=== PATIENT | female | born 1985 | race Caucasian/White ===

== ENCOUNTER 2016-06-03 18:42 | Emergency (ER) | payer SELFPAY ==
[2016-06-03 19:00] VITALS: BP 154/90; PULSE 95; TEMP 98.9; BMI 35.7
[2016-06-03 19:19] LABS: AUTOMATED BASOPHIL 0.8 % (0-2); AUTOMATED EOSINOPHIL 0.5 % (0-5); AUTOMATED LYMPH 32.1 % (17-44); AUTOMATED MONOCYTE 6.8 % (3-10); AUTOMATED NEUTROPHIL 59.8 % (45-76); MPV 8.2 fL (7.4-10.4)
[2016-06-03 19:23] LABS: RBC/URINE 0-2 (0-5); WBC/URINE 0-2 (0-5)
[2016-06-03 19:28] LABS: LEUKOCYTES/URINE NEG (NEGATIVE); NITRITE/URINE NEG (NEGATIVE); URINE OCCULT BLOOD 1+ (NEG/TRACE)
[2016-06-03 19:36] LABS: BLOOD UREA NITROGEN 9 MG/DL (7-17); CALCIUM 9.4 MG/DL (8.4-10.2); CALCULATED OSMOLALITY 274 MOs/Kg (270-290); CHLORIDE 105 mEq/L (98-107); ETOH-MGDL < 10 mg/dL; GLUCOSE 96 MG/DL (70-99); SODIUM LEVEL 143 mEq/L (137-146); TOTAL PROTEIN 8.2 G/DL (6.3-8.2)
== END 2016-06-03 20:45 | disposition left against medical advice (07) ==
LOC: ED 18:42
DX: T42.6X2A Poisoning by other antiepileptic and sedative-hypnotic drugs, intentional self-harm, initial encounter (principal)
CPT/HCPCS: 36415; 80053; 80307; 80329; 81001; 85025; 86592; 93005; 99281

== ENCOUNTER 2016-06-03 21:42 | Observation (INO) | payer SELFPAY ==
[2016-06-03 21:55] VITALS: BMI 35.6
--- NOTE | 2016-06-03 22:16 | EDPRACDOC ---
- General Information Chief Complaint: Psychiatric Illness Stated Complaint: IVC Time Seen by Provider: 06/03/16 21:48 Mode of Arrival: Law Enforcement Home Medications: Home Medications CYANOCOBALAMIN (Vitamin B-12) [Vitamin B-12] 1,000 mcg IM DAILY 06/03/16 Gabapentin 300 mg PO .SEE COMMENTS 06/03/16 Unknown Other Meds 0 mg PO .SEE COMMETS 06/03/16 Allergies/Adverse Reactions: Allergies Allergy/AdvReac Type Severity Reaction Status Date / Time lisinopril Allergy Hives* Verified 06/03/16 18:54 - History of Present Illness Onset: [employer] HPI: PT PRESENTS TODAY WITH ANGIE FOR SI. PT CHECKED IN A FEW HOURS AGO AND TOLD TRIAGE NURSE THAT SHE HAD JUST ATTEMPTED SUICIDE BY OVERDOSE OF NEUROTIN. PT WAS BROUGHT BACK FOR EVALUATION, BUT WHEN STAFF WENT TO COLLECT HER CELL PHONE, PT REFUSED AND RAN AWAY. EMERGENT IVC PAPERWORK WAS TAKEN OUT AND PT WAS FOUND WALKING DOWN THE STREET BY ANGIE. WHEN ASKED WHY PT WANTED TO COMMIT SUICIDE, SHE ONLY STATES "BECAUSE I'M SAD" AND REFUSES TO GIVE FURTHER. PTS ONLY PHYSICAL COMPLAINT IS "I FEEL HIGH". PT APPEARS INTOXICATED, BUT NO DISTRESS. Reason for Seeking Treatment: 911 Call Presents With: Reports: Suicidal Ideation Expresses: Reports: Suicidal Plan Suicidal Plan: Reports: Overdose Associated Signs and Symptoms: Reports: Hopeless ED Past Medical History - History Reviewed Yes Nurses notes reviewed and agree except as marked - Patient Medical History Neurological History: Reports: Cerebrovascular Accident ("mini") Cardiac History: Reports: Hypertension Respiratory History: Reports: Asthma Psychological History: Reports: Depression, Anxiety - Social Medical History Smoking Status: Heavy tobacco smoker (5 or more cigarettes/day or daily pipe/ cigar) EDM Review of Systems - Review of Systems ROS Negative Except as Marked: Yes All systems reviewed and were negative except as marked Constitutional: No Symptoms Reported Respiratory: No Symptoms Reported Cardiovascular: No Symptoms Reported Gastrointestinal: No Symptoms Reported Neurological: No Symptoms Reported Musculoskeletal: No Symptoms Reported Integumentary: No Symptoms Reported Psychiatric: Depression, Suicidal - Physical Exam Constitutional: Alert (Awake), No apparent distress Oriented to: Time, Person, Place Last recorded Vital Signs: Last Vital Signs Temp Pulse 79 06/03/16 21:48 Resp 20 06/03/16 21:48 BP 134/88 06/03/16 21:48 Pulse Ox 96 06/03/16 21:48 Oxygen Pulse Oxygen Saturation 96 O2 Device Room Air Oxygen Flow Rate Fraction of Inspired Oxygen ( FIO2) - HEENT Head: Normal Eye Exam: Conjunctival Injection Oropharynx: Normal Tympanic Membrane: Normal ENT EAC: Normal Nose: No Symptoms Reported Neck: Normal, Denies Pain, Midline - Respiratory/Cardiovascular Respiratory: Normal - CTA Cardiovascular: Normal - GI Palpation: Normal Tenderness: Non tender - Musculoskeletal Back: Normal Extremities: Normal - Integumentary Skin: Normal Lymphatics: Normal - Neurologic Cerebellar: Normal Mood Description: Appropriate, Calm Thought: Coherent Perception: Normal Initial Evaluation Apperance: Casual, Overweight, Stated Age Attitude: Cooperative Mood: Sad Affect: Congruent w/ mood Insight: Impaired Judgement: Impaired Memory Description: Intact Depressive Symptoms: Reports: Sadness Hallucination Type: Reports: None Hallucinations Severity: Reports: None Hallucinations affecting more than one sensory system: No - EKG EKG #1 EKG Time: 22:10 -: Yes EKG interpreted by me Rate: bpm: 74 [place]: Normal Rhythm: NSR Block: None Hypertrophy: None ST: Normal - Departure Disposition: Admit to Condition: Stable Final Diagnosis: NEUROTIN OVERDOSE, Suicidal behavior with attempted self-injury Referrals: None,No Provider [Primary Care Provider] - One Week Prescriptions: No Action CYANOCOBALAMIN (Vitamin B-12) [Vitamin B-12] 1,000 mcg IM DAILY Gabapentin 300 mg PO .SEE COMMENTS Unknown Other Meds 0 mg PO .SEE COMMETS Decision to Admit Time: 22:21 Decision to admit date: 06/03/16 Decision to admit: from ED
[2016-06-03 22:21] LABS: ALL NEG? NO
[2016-06-03 22:27] LABS: AUTOMATED BASOPHIL 1.1 % (0-2); AUTOMATED EOSINOPHIL 0.7 % (0-5); AUTOMATED LYMPH 36.7 % (17-44); AUTOMATED MONOCYTE 6.7 % (3-10); AUTOMATED NEUTROPHIL 54.8 % (45-76); MPV 8.6 fL (7.4-10.4)
[2016-06-03 22:29] LABS: MDMA* NEG (NEGATIVE); METHAMPHETAMINES NEG (NEGATIVE); OXYCODONE NEG (NEGATIVE); WBC/URINE 0-2 (0-5)
[2016-06-03 22:30] LABS: LEUKOCYTES/URINE NEG (NEGATIVE); NITRITE/URINE NEG (NEGATIVE); URINE OCCULT BLOOD 1+ (NEG/TRACE)
[2016-06-03 22:39] LABS: BLOOD UREA NITROGEN 8 MG/DL (7-17); CALCIUM 9.4 MG/DL (8.4-10.2); CALCULATED OSMOLALITY 273 MOs/Kg (270-290); CHLORIDE 102 mEq/L (98-107); ETOH-MGDL < 10 mg/dL; GLUCOSE 92 MG/DL (70-99); SODIUM LEVEL 143 mEq/L (137-146); TOTAL PROTEIN 8.4 G/DL (6.3-8.2)
[2016-06-04] MEDS: NS 1,000 ML IV SCH (00:37)
[2016-06-04] MEDS ORDERED: ONDANSETRON HCL 4 MG ODT TAB PO PRN (05:41)
[2016-06-04] MEDS ORDERED: PROMETHAZINE 25 MG TAB PO PRN (05:41)
[2016-06-04] MEDS ORDERED: IBUPROFEN 400 MG TAB PO PRN (05:41)
[2016-06-04] MEDS ORDERED: ACETAMINOPHEN 325 MG/TAB TABLET PO PRN (05:41)
[2016-06-04] MEDS ORDERED: NICOTINE 21 MG PATCH TOP SCH (06:00)
[2016-06-04] MEDS ORDERED: HALOPERIDOL 5 MG/ML VIAL IM ONE (11:29)
--- NOTE | 2016-06-04 11:30 | EDTUNOTE ---
Initial Evaluation Apperance: Casual, Overweight, Stated Age Attitude: Cooperative Mood: Sad Affect: Congruent w/ mood Insight: Impaired Judgement: Impaired Memory Description: Intact Depressive Symptoms: Reports: Sadness Hallucination Type: Reports: None Hallucinations Severity: Reports: None Hallucinations affecting more than one sensory system: No - SOAP Note Patient Problems: Active Problems Suicidal behavior with attempted self-injury (Acute) T14.91 SOAP Note: BRIEF HX: PT PRESENTS TODAY WITH ANGIE FOR SI. PT CHECKED IN A FEW HOURS AGO AND TOLD TRIAGE NURSE THAT SHE HAD JUST ATTEMPTED SUICIDE BY OVERDOSE OF NEUROTIN. PT WAS BROUGHT BACK FOR EVALUATION, BUT WHEN STAFF WENT TO COLLECT HER CELL PHONE, PT REFUSED AND RAN AWAY. EMERGENT IVC PAPERWORK WAS TAKEN OUT AND PT WAS FOUND WALKING DOWN THE STREET BY ANGIE. WHEN ASKED WHY PT WANTED TO COMMIT SUICIDE, SHE ONLY STATES "BECAUSE I'M SAD" AND REFUSES TO GIVE FURTHER. PTS ONLY PHYSICAL COMPLAINT IS "I FEEL HIGH". PT APPEARS INTOXICATED, BUT NO DISTRESS. S: PT BROUGHT TO ED AFTER OVERDOSE ON APPROX #21 GABAPENTIN TABLETS. SHE WAS BROUGHT TO ED BY ANGIE FOR SI. PT HAS NO C/O THIS AM. O: VSS, AFEBRILE CTAB, RRR CALM AND COOPERATIVE A: SUICIDAL ATTEMPT BY OVERDOSE NEURONTIN OVERDOSE DEPRESSION P: CONTINUE MED/OBS/PSYCH MANAGEMENT UNTIL PROPER DISPOSITION CAN BE DETERMINED.
--- NOTE | 2016-06-04 11:34 | EDTUNOTE ---
Initial Evaluation Apperance: Casual, Overweight, Stated Age Attitude: Cooperative Mood: Sad Affect: Congruent w/ mood Insight: Impaired Judgement: Impaired Memory Description: Intact Depressive Symptoms: Reports: Sadness Hallucination Type: Reports: None Hallucinations Severity: Reports: None Hallucinations affecting more than one sensory system: No - SOAP Note Patient Problems: Active Problems Suicidal behavior with attempted self-injury (Acute) T14.91 SOAP Note: WAS NOTIFIED OF PT TRYING TO LEAVE AND DISPLAYING UNCOOPERATIVE BEHAVIOR AND REFUSING TO OBEY RULES, PT WAS HANDCUFFED BY SECURITY DUE TO HER TRYING TO LEAVE. I HAVE ORDERED HALDOL 10MG IM X 1DOSE. WILL RE-EVALUATED IN 1 HOUR.
--- NOTE | 2016-06-04 12:42 | TUDEPART ---
Disposition: Trans. to Other Hospital ([facility]) Condition: Stable Instructions: Adult Overdose, Suicide Prevention for Adults (DC) Education/Counseling Given To: Patient Education/Counseling Given Regarding: Diagnosis, Treatment, Prognosis, Follow Up Follow-up / Referrals: None,No Provider [Family Provider] - One Week Decision to Transfer Time: 12:42 - Physical Exam Constitutional: Alert (Awake), No apparent distress Oriented to: Time, Person, Place Last recorded Vital Signs: Last Vital Signs Temp 97.8 F 06/04/16 11:54 Pulse 88 06/04/16 11:54 Resp 18 06/04/16 11:54 BP 134/74 06/04/16 11:54 Pulse Ox 100 06/04/16 11:54 Oxygen Pulse Oxygen Saturation 100 O2 Device Oxygen Flow Rate Fraction of Inspired Oxygen ( FIO2) - HEENT Head: Normal Eye Exam: Conjunctival Injection Oropharynx: Normal Tympanic Membrane: Normal ENT EAC: Normal Nose: No Symptoms Reported - Respiratory/Cardiovascular Respiratory: Normal - CTA Cardiovascular: Normal - GI Palpation: Normal Tenderness: Non tender - Musculoskeletal Back: Normal Extremities: Normal - Integumentary Skin: Normal Lymphatics: Normal - Neurologic Cerebellar: Normal Mood Description: Appropriate, Calm Thought: Coherent Perception: Normal
[2016-06-04 15:56] VITALS: BP 121/74; PULSE 60; TEMP 98.4
== END 2016-06-04 15:30 ==
LOC: ED 21:42 → TUOBSINP 06-04 05:41
PROVIDERS: ADMIT Physician Assistant; ATTEND Emergency Medicine
DX: Z04.6 Encounter for general psychiatric examination, requested by authority (principal); T42.6X2A Poisoning by other antiepileptic and sedative-hypnotic drugs, intentional self-harm, initial encounter; F32.9 Major depressive disorder, single episode, unspecified; F41.9 Anxiety disorder, unspecified; I10 Essential (primary) hypertension; F17.200 Nicotine dependence, unspecified, uncomplicated; Z79.899 Other long term (current) drug therapy
CPT/HCPCS: 36415; 80053; 80307; 81001; 81025; 85025; 86592; 93005; 96360; 99285; G0378